=== PATIENT | female | born 1965 | race Caucasian/White ===

== ENCOUNTER 2017-01-29 20:46 | Emergency (ER) | payer OTHER ==
[~2017-01-29] VITALS: Ht 165.1 cm; Wt 81.6 kg
[2017-01-29 23:30] VITALS: BP 116/73
== END 2017-01-29 23:30 | disposition home or self-care (01) ==
LOC: ED 20:46
DX: S91.332A Puncture wound without foreign body, left foot, initial encounter (principal); W22.09XA Striking against other stationary object, initial encounter; Y93.89 Activity, other specified; Y92.89 Other specified places as the place of occurrence of the external cause; Y99.8 Other external cause status
CPT/HCPCS: 90715; J0696

== ENCOUNTER 2017-02-27 10:24 | Emergency (ER) | payer MEDICAID ==
[2017-02-27 11:35] VITALS: BP 145/81
== END 2017-02-27 11:35 | disposition home or self-care (01) ==
LOC: ED 10:24
DX: H61.21 Impacted cerumen, right ear (principal)